=== PATIENT | female | born 1985 | race Two or more races ===

== ENCOUNTER 2018-09-02 16:00 | Emergency (ER) | payer OTHER ==
[~2018-09-02] VITALS: Ht 167.6 cm; Wt 61.7 kg
[2018-09-02 19:03] VITALS: BP 140/67
== END 2018-09-02 19:03 | disposition home or self-care (01) ==
LOC: EDSEX 16:00 → ED 16:00
DX: G44.209 Tension-type headache, unspecified, not intractable (principal); R42 Dizziness and giddiness; R11.0 Nausea